=== PATIENT | male | born 1960 | race Hispanic/Latino ===

== ENCOUNTER 2017-03-26 14:37 | Observation (INO) | payer SELFPAY ==
[2017-03-26 14:43] VITALS: O2SAT 97
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
[2017-03-26 16:56] LABS: BARBITURATES, UR NEGATIVE (NEGATIVE); BENZODIAZEPINES, UR NEGATIVE (NEGATIVE); OPIATES, UR NEGATIVE (NEGATIVE); PHENCYCLIDINE, UR NEGATIVE (NEGATIVE)
--- NOTE | 2017-03-26 19:14 | ED PDOC ---
- ECG O2 Sat by Pulse Oximetry: 97 (RA) Pulse Ox Interpretation: Normal Medical Decision Making Medical Decision Makin:00 Pt signed over pending clinical sobriety and Crisis Eval. Patient is cleared for discharge by Dr Coleho. Pt is alert and awake. Ambulatory with steady gait. Scribe Attestation: Documented by Cynthia Rizvi, acting as a scribe for Truong Bean MD. Provider Scribe Attestation: All medical record entries made by the Scribe were at my direction and personally dictated by me. I have reviewed the chart and agree that the record accurately reflects my personal performance of the history, physical exam, medical decision making, and the department course for this patient. I have also personally directed, reviewed, and agree with the discharge instructions and disposition. Disposition Doctor Will See Patient In The: Office Counseled Patient/Family Regarding: Studies Performed, Diagnosis, Need For Followup - Clinical Impression Clinical Impression: Alcohol intoxication - POA Present On Arrival: None - Disposition Disposition: Routine/Home Disposition Time: 00:53 Condition: GOOD
[2017-03-27 01:58] VITALS: RESP 17
[2017-03-27 01:59] VITALS: BP 128/75; PULSE 86; TEMP 97.9
== END 2017-03-27 00:53 | disposition home or self-care (01) ==
LOC: H.ER 14:37 → H.EROBSV 15:56
PROVIDERS: ADMIT Emergency Medicine; ATTEND Emergency Medicine
DX: F10.129 Alcohol abuse with intoxication, unspecified (principal); Y90.8 Blood alcohol level of 240 mg/100 ml or more
CPT/HCPCS: 99283; G0378; G0480